=== PATIENT | female | born 1940 | race Caucasian/White ===

== ENCOUNTER → 2016-07-24 | Outpatient (CLI) | payer OTHER, MEDICARE ==
[~2016-07-24] VITALS: Ht 152.4 cm; Wt 123.4 kg
[~2016-07-24] MED LIST: ASPIR 8181 M1 PO; ATORVASTATIN CA10 MG PO; HYDROCHLOROTHIA25 MG PO; LOFIBRA,TRIGLI160 MG PO; LOPRESSOR50 MG PO; METFORMIN HCL500 MG PO; METOPROLOL TART50 MG PO; PERCOCET 5/31 TABLET PO; TOPROL XL50 MG PO; TRANDOLAPRIL4 MG PO; TRICOR145 MG PO; TYLENOL REGULA325 MG PO; VENTOLIN HFA18 GM IH
[2016-07-24 10:53] LABS: POINT-OF-CARE METER ID UU13113694
[2016-07-24 11:04] LABS: ANION GAP 10 MEQ/L (2-14); CHLORIDE 105 MEQ/L (99-109); POTASSIUM 4.1 MEQ/L (3.7-5.4); SAMPLE HEMOLYSIS CHECK 0; SAMPLE ICTERIC CHECK 0; SAMPLE LIPEMIA CHECK 0; SODIUM 142 MEQ/L (136-147)
[2016-07-24 11:10] LABS: GFR ESTIMATE (CALCULATED) 57 mL/min/; GLUCOSE 102 mg/dL (70-99); UREA NITROGEN (BUN) 18 mg/dL (9-23)
[2016-07-24 13:13] LABS: POINT-OF-CARE METER ID UU13113819
== END | disposition home or self-care (01) ==
LOC: AMB 09:49
PROVIDERS: Anesthesiology; Internal Medicine Gastroenterology
PROC: 0DBP8ZX Excision of Rectum, Via Natural or Artificial Opening Endoscopic, Diagnostic (ICD-10-PCS; principal; 2016-07-24)
PROC: 0DBL8ZX Excision of Transverse Colon, Via Natural or Artificial Opening Endoscopic, Diagnostic (ICD-10-PCS; principal; 2016-07-24)
DX: Z12.11 Encounter for screening for malignant neoplasm of colon (principal); Z09 Encounter for follow-up examination after completed treatment for conditions other than malignant neoplasm; Z80.0 Family history of malignant neoplasm of digestive organs; Z86.010 Personal history of colon polyps; K63.5 Polyp of colon; D12.8 Benign neoplasm of rectum; K57.30 Diverticulosis of large intestine without perforation or abscess without bleeding; I10 Essential (primary) hypertension; R94.31 Abnormal electrocardiogram [ECG] [EKG]
CPT/HCPCS: 80048; 82948; 88305; 93005; J3010

== ENCOUNTER 2017-01-12 10:53 | Emergency (ER) | payer OTHER, MEDICARE ==
[~2017-01-12] VITALS: Ht 154.9 cm; Wt 103.6 kg
[2017-01-12 14:00] VITALS: BP 126/84
== END 2017-01-12 14:02 | disposition home or self-care (01) ==
LOC: EME 10:53
DX: M54.32 Sciatica, left side (principal); M25.552 Pain in left hip; Z96.642 Presence of left artificial hip joint; I10 Essential (primary) hypertension; E78.5 Hyperlipidemia, unspecified; E11.9 Type 2 diabetes mellitus without complications; Z85.42 Personal history of malignant neoplasm of other parts of uterus
CPT/HCPCS: 73502; 99281; 99283; J2270